=== PATIENT | male | born 1995 | race Caucasian/White ===

== ENCOUNTER 2018-04-05 08:55 | Emergency (ER) | payer BC, OTHER ==
[2018-04-05] MEDS ORDERED: Cephalexin 500 MG CAP ONE (09:11)
[2018-04-05] MEDS ORDERED: Sulfameth/Trimethoprim DS 800-160mg TAB ONE (09:12)
== END 2018-04-05 09:46 | disposition home or self-care (01) ==
LOC: SCSER 08:55
DX: L03.116 Cellulitis of left lower limb (principal)
CPT/HCPCS: 99283